=== PATIENT | male | born 1995 | race Caucasian/White ===

== ENCOUNTER 2016-08-11 08:01 | Emergency (ER) | payer OTHER, SELFPAY ==
[~2016-08-11 08:01] MED LIST: BACTRIM DS DPS1 TAB PO; NORCO 5-325 TA1 EACH PO; PRILOSEC DPS20 MG PO; TYLENOL EXTRA500 M1 PO; ZOFRAN4 MG PO
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
== END 2016-08-11 08:39 | disposition home or self-care (01) ==
LOC: ER 08:01
PROC: 0HQ0XZZ Repair Scalp Skin, External Approach (ICD-10-PCS; principal; 2016-08-11)
DX: S01.01XA Laceration without foreign body of scalp, initial encounter (principal); Z23 Encounter for immunization; W16.322A Fall into other water striking bottom causing other injury, initial encounter; Y92.410 Unspecified street and highway as the place of occurrence of the external cause